=== PATIENT | male | born 1955 | race Caucasian/White ===

== ENCOUNTER → 2017-12-10 | Outpatient (CLI) | payer BC ==
[~2017-12-10] MED LIST: ASPIRIN 81M81 MG/TA2 PO; CLARITIN 1010 MG/TAB PO; NIACIN500 MG PO; PRILOSEC10 MG PO; VITAMIN C500 MG PO; [UNRECOGNIZED DRUG - OTHER] PO
== END ==
LOC: COL.RAD 14:40
DX: K57.32 Diverticulitis of large intestine without perforation or abscess without bleeding (principal); K76.89 Other specified diseases of liver; K44.9 Diaphragmatic hernia without obstruction or gangrene; R50.9 Fever, unspecified; Z87.19 Personal history of other diseases of the digestive system
CPT/HCPCS: J7050; Q9967

== ENCOUNTER → 2020-11-29 | Outpatient (CLI) | payer MEDICARE, OTHER | LOC: COL.RAD 10:23 | DX: J01.00 Acute maxillary sinusitis, unspecified (principal) ==